=== PATIENT | female | born 1930 | race Caucasian/White ===

== ENCOUNTER 2016-09-14 20:38 | Emergency (ER) | payer OTHER ==
[~2016-09-14] VITALS: Ht 147.3 cm; Wt 61.5 kg
[2016-09-14] MEDS ORDERED: DABI75CA3 PO (20:52)
[2016-09-14] MEDS ORDERED: CILO100T PO (20:52)
[2016-09-14] MEDS ORDERED: HYDR-3110 PO (20:52)
[2016-09-14] MEDS ORDERED: DOCU250C91 PO (20:52)
[2016-09-14] MEDS ORDERED: HYDR10 PO (20:52)
[2016-09-14] MEDS ORDERED: IPRA6S NASAL (20:52)
[2016-09-14] MEDS ORDERED: OMEP20 PO (20:52)
[2016-09-14] MEDS ORDERED: GABA-529 PO (20:52)
[2016-09-14] MEDS ORDERED: FURO40 PO (20:52)
[2016-09-14] MEDS ORDERED: VALS160T2 PO (20:52)
[2016-09-14] MEDS ORDERED: SERT50TA12 PO (20:52)
[2016-09-14] MEDS ORDERED: POTA8TAB4 PO (20:52)
[2016-09-14] MEDS ORDERED: AMLO2.5T PO (20:52)
[2016-09-14] MEDS ORDERED: METO25 PO (20:52)
[2016-09-14] MEDS: ACYCLOVIR 200 MG CAPSULE PO ONE (21:52)
[2016-09-14] MEDS: SULFAMETHOX/TRIMETH DS 800-160 MG/TABLET PO ONE (21:53)
[2016-09-14] MEDS: LIDOCAINE HCL/PF 1% 2 ML VIAL IM ONE (21:54)
[2016-09-14] MEDS: CefTRIAXone SODIUM 1 GM/VIAL IM ONE (21:55)
[2016-09-14 22:16] VITALS: BP 146/79
== END 2016-09-14 22:35 | disposition home or self-care (01) ==
LOC: EMS 20:47
DX: B02.9 Zoster without complications (principal); H60.12 Cellulitis of left external ear; Z88.6 Allergy status to analgesic agent; I10 Essential (primary) hypertension; I50.9 Heart failure, unspecified
CPT/HCPCS: 93005; 96372; 99284; J0696; J3490